=== PATIENT | male | born 1985 | race African-American/Black ===

== ENCOUNTER 2022-11-07 08:41 | Emergency (ER) | payer OTHER, SELFPAY ==
[2022-11-07 08:52] VITALS: BP 129/69; PULSE 64; RESP 16; TEMP 36.9; O2SAT 100
--- NOTE | 2022-11-07 09:10 | ED.GENADULT ---
HPI - General Adult General Chief complaint: Skin/Abscess/Foreign Body Stated complaint: FB in L Palm Time Seen by Provider: 11/07/22 08:49 History of Present Illness HPI narrative: 36-year-old male presented the emergency department for evaluation of an abscess to his left hand. Patient states approximate 1 month ago he had a foreign body in his left hand. Patient states he did remove the splinter. Patient did present to [facility] for evaluation and had a negative x-ray. Patient reports he has taken a course of antibiotics but he has had increased swelling at the lateral left hand. Patient was on antibiotics but is unsure of what antibiotics he has been on. Related Data Allergies Allergy/AdvReac Type Severity Reaction Status Date / Time pork derived (porcine) AdvReac Nausea and Verified 11/07/22 09:01 Vomiting Review of Systems Review of Systems: All systems reviewed & are unremarkable except as noted in HPI and below Exam Narrative: APPEARANCE: Well appearing, no pain, no distress, well-nourished. HEAD: normocephalic, atraumatic. EYES: PERRLA/EOMI, conjunctivae clear. NOSE: Normal no drainage NECK: Supple. No adenopathy, no masses. RESPIRATORY: Airway patent, respirations nonlabored. Clear to auscultation bilaterally, no rales, rhonchi, wheezing. CARDIOVASCULAR: Regular rate and rhythm without murmurs rubs or gallops. ABDOMINAL: Soft, nontender, nondistended, normal bowel sounds MUSCULOSKELETAL: Moves all extremities. Strength/ROM intact, No edema, No calf tenderness. NEURO: Alert. Cranial nerves II through XII intact. Grossly intact SKIN: Abscess on left hand Course Course Emergency Course: 36-year-old male presented the ED for evaluation of an abscess on his left hand. Patient had negative x-rays previously showing no foreign body. Ultrasound showed no foreign body but did show an abscess. I&D was performed and patient had a few milliliters of purulent material from the wound. Patient was started on clindamycin. Wound culture is pending. Patient was encouraged of close follow-up with his primary care physician was also provided outpatient follow-up with hand. All concerns were addressed and patient was comfortable to plan for discharge and close follow-up. Vital Signs Vital signs: Vital Signs Temperature 98.5 F 11/07/22 08:52 Pulse Rate 64 11/07/22 08:52 Respiratory Rate 16 11/07/22 08:52 Blood Pressure 129/69 11/07/22 08:52 Pulse Oximetry 100 11/07/22 08:52 Oxygen Delivery Room Air 11/07/22 08:52 Temperature 98.5 F 11/07/22 08:52 Pulse Rate 67 11/07/22 09:36 Respiratory Rate 15 11/07/22 09:36 Blood Pressure 108/75 11/07/22 09:36 Pulse Oximetry 99 11/07/22 09:36 Oxygen Delivery Room Air 11/07/22 08:52 Procedures Abscess I/D hand: Time of Incision: 09:13 Side (if applicable): left Local Anesthetic: lidocaine 1% Amount of anesthesia used (mL): 2 Technique: incised with #11 blade Amount of fluid expressed (mL): 2 Irrigation: Yes Packing used?: none I&D Results: Pus Complications: other (none) Medical Decision Making Differential Diagnosis Differential Diagnosis: Foreign body, abscess, cellulitis Vital Signs Vital Signs: Vital Signs Temperature 98.5 F 11/07/22 08:52 Pulse Rate 64 11/07/22 08:52 Respiratory Rate 16 11/07/22 08:52 Blood Pressure 129/69 11/07/22 08:52 Pulse Oximetry 100 11/07/22 08:52 Oxygen Delivery Room Air 11/07/22 08:52 Temperature 98.5 F 11/07/22 08:52 Pulse Rate 67 11/07/22 09:36 Respiratory Rate 15 11/07/22 09:36 Blood Pressure 108/75 11/07/22 09:36 Pulse Oximetry 99 11/07/22 09:36 Oxygen Delivery Room Air 11/07/22 08:52 Discharge Plan Discharge Clinical Impression: Abscess of skin or subcutaneous tissue Patient Disposition: Home, Self-Care Condition: Stable Instructions: Antibiotic For
[2022-11-07] MEDS: CLINDAMYCIN HCL 150 MG CAP PO (09:30)
[2022-11-07 09:36] VITALS: BP 108/75; PULSE 67; RESP 15; O2SAT 99
== END 2022-11-07 09:39 | disposition home or self-care (01) ==
PROVIDERS: Emergency Provider Emergency Medicine
DX: L02.512 Cutaneous abscess of left hand (principal)
CPT/HCPCS: 10060; 87070; 87205; 99283; A9270

== ENCOUNTER 2023-01-02 15:38 | Emergency (ER) | payer OTHER, SELFPAY ==
[2023-01-02 15:49] VITALS: BP 126/95; PULSE 87; RESP 15; TEMP 36.9; O2SAT 100
--- NOTE | 2023-01-02 16:09 | ED.GENADULT ---
HPI - General Adult General Chief complaint: Unspecified Stated complaint: weakness, sore throat Time Seen by Provider: 01/02/23 15:52 History of Present Illness HPI narrative: 37-year-old male reports for evaluation for a sore throat, body aches and chills x3 days. He reports that his more painful when he swallows. He is able to swallow solid foods and fluids. He denies known fever, vomiting, chest pain or shortness of breath, cough or congestion, otalgia. Reports taking cough drops today without improvement. Related Data Allergies Allergy/AdvReac Type Severity Reaction Status Date / Time pork derived (porcine) AdvReac Nausea and Verified 01/02/23 16:30 Vomiting Review of Systems Review of Systems: CONSTITUTIONAL: Denies fever, chills EYES: Denies visual changes, redness, or discharge. ENT: See HPI CARDIOVASCULAR: Denies chest pain, palpitations, or edema. RESPIRATORY: Denies cough or dyspnea. GASTROINTESTINAL: Denies abdominal pain, nausea, vomiting, or diarrhea. GENITOURINARY: Denies dysuria or hematuria. SKIN: Denies rash or itching. MUSCULOSKELETAL: Denies back pain, joint pain, or myalgia. NEUROLOGIC: Denies headache, numbness, dizziness, or weakness. PSYCHIATRIC: Denies anxiety or depression. Exam Narrative: GENERAL: Well-appearing, in no acute distress. Patient resting comfortably in exam bed. He is pleasant and conversational HEAD: Normocephalic EYES: PERRLA ENT: Nares clear. Mucous membranes moist. Bilateral TMs are gay and nonbulging. Posterior pharynx and tonsils with edema and erythema. 2+ tonsillar hypertrophy with small amount of exudates to the right tonsil. No uvular deviation. Patient tolerating secretions, no trismus. Floor mouth is soft without crepitus. No muffled voice. NECK: Supple. CHEST: No respiratory distress. Clear to auscultation, no adventitious breath sounds. HEART: Regular rate and rhythm. No murmur heard. Normal peripheral pulses. ABDOMEN: Soft, nontender, normal active bowel sounds. EXTREMITIES: Normal range of motion. No edema. SKIN: Warm, dry, no rash. NEURO: No focal deficits. Alert and oriented x3. PSYCH: Normal mood and affect. Course Vital Signs Vital signs: Vital Signs Temperature 98.4 F 01/02/23 15:49 Pulse Rate 87 01/02/23 15:49 Respiratory Rate 15 01/02/23 15:49 Blood Pressure 126/95 H 01/02/23 15:49 Pulse Oximetry 100 01/02/23 15:49 Oxygen Delivery Room Air 01/02/23 15:49 Temperature 98.4 F 01/02/23 15:49 Pulse Rate 87 01/02/23 15:49 Respiratory Rate 15 01/02/23 15:49 Blood Pressure 126/95 H 01/02/23 15:49 Pulse Oximetry 100 01/02/23 15:49 Oxygen Delivery Room Air 01/02/23 15:49 Medical Decision Making MDM Narrative Medical decision making narrative: 37-year-old male reports for evaluation for a sore throat, body aches and chills x3 days. Vital stable other than mildly elevated BP. Patient afebrile. Exam significant for 2+ tonsillar hypertrophy with erythema and exudates. No uvular deviation. Unlikely deep space infection or EXCELSIOR PICKER given no trismus and tolerating secretions, no muffled voice, no uvular deviation. Luna, COVID and flu and strep all negative. Given physical exam findings, will treat for bacterial etiology in the case that strep was a false negative. Penicillin sent to pharmacy. Advise follow-up with PCP within the following week, referral provided. Strict ED return precautions were discussed. He is agreeable to plan verbalized understanding. Discharged in stable condition. Medical Records Medical records reviewed: Yes I reviewed the external patient's medical records. Vital Signs Vital Signs: Vital Signs Temperature 98.4 F 01/02/23 15:49 Pulse Rate 87 01/02/23 15:49 Respiratory Rate 15 01/02/23 15:49 Blood Pressure 126/95 H 01/02/23 15:49 Pulse Oximetry 100 01/02/23 15:49 Oxygen Delivery Room Air 01/02/23 15:49 Temperature 98.4 F 01/02/23 15:49
[2023-01-02] MEDS: IBUPROFEN 600 MG TABLET PO (16:27)
[2023-01-02 16:59] LABS: Strep Group A RT-PCR NOT DETECTED (Negative)
[2023-01-02 17:12] LABS: Influenza A QL RT-PCR Negative (Negative); Influenza B QL RT-PCR Negative (Negative); SARS-CoV-2 RNA PCR Negative (Negative)
[2023-01-02 17:44] LABS: Monoscreen Negative (Negative); Negative Monotest Control Negative (Negative); Positive Monotest Control Positive (Positive)
[2023-01-02 18:33] VITALS: BP 134/76; PULSE 79; RESP 16; O2SAT 98
== END 2023-01-02 18:36 | disposition home or self-care (01) ==
PROVIDERS: Emergency Provider Physician Assistant
DX: J02.9 Acute pharyngitis, unspecified (principal); Z20.822 Contact with and (suspected) exposure to COVID-19
CPT/HCPCS: 36415; 86308; 87636; 87651; 96372; 99283; A9270; J1100

== ENCOUNTER 2024-06-07 14:31 | Emergency (ER) | payer OTHER, SELFPAY ==
--- NOTE | ~2024-06-07 | XR_ITS ---
HISTORY: swelling; c/f infection COMPARISON: None TECHNIQUE: 3 views of the left fourth digit. FINDINGS: No acute or subacute fracture. Joint spaces are preserved and alignment is preserved. Moderate soft tissue swelling projecting over the proximal interphalangeal joint space without radiop aque foreign body. IMPRESSION: Soft tissue swelling, without acute fracture. Reviewed, dictated and finalized at location A. LIFE TECHNICIAN
[2024-06-07 14:33] VITALS: BP 117/70; PULSE 78; RESP 18; TEMP 36.7; O2SAT 100
--- NOTE | 2024-06-07 17:06 | ED_ITS ---
HPI - Extremity Problem General Chief complaint: Extremity Problem,Nontraumatic Stated complaint: suspected inf. of LEFT ring finger Time Seen by Provider: 06/07/24 16:12 Source: patient Mode of arrival: ambulatory Limitations: no limitations History of Present Illness HPI Narrative: Left hand dominant Patient presents with concern for infection in left 4th digit. Denies any particular injury that he can recall - no bite, scratch/scrape, not performing activity under high pressure (PSI). History of infection in this extremity but in the hand. Denies history of MRSA. States his tetanus shot is up to date, believes it was last year. Has not been taking anything for pain at home. Symptoms started 2 days ago spontaneously. Works [employer]. Related Data Allergies Allergy/AdvReac Type Severity Reaction Status Date / Time pork derived (porcine) AdvReac Nausea and Verified 06/07/24 14:33 Vomiting PMFSH Past Medical History Medical History (Updated 06/08/24 @ 00:00 by Davon Scott) Abscess of left hand Left hand dominant Social History Social History (Updated 06/08/24 @ 12:21 by Aubree Bar MD) Occupation/Education: occupation Additional occupation/education comments: [employer] Exam 2 Narrative: GENERAL: Well-appearing, well-nourished, and in no acute distress. HEAD: Normocephalic, atraumatic. EYES: Non injected, non icteric ENT: Nares clear, no rhinorrhea or epistaxis. NECK: Supple. CHEST: Speaking in full sentences. No respiratory distress. HEART: Regular rate and rhythm. . ABDOMEN: Soft, nondistended. EXTREMITIES: Bilateral hands with multiple callouses on palm. Old scar on palmar aspect left hand. Strong palpable pulse and brisk capillary refill. Left 4th digit held in slight flexion. Tremendously swollen along the base/proximal aspect of this digit with a central area along palmar aspect that appears dry and calloused but not ulcerated, no purulent discharge. Finger is erythematous in this area, particularly along ulnar aspect of this digit at the base. TTP along ulnar aspect of this digit and into the dorsum of left hand. No TTP along flexor tendon sheeth. Pain with active and passive extension of this digit. SKIN: Warm, dry. NEURO: No focal deficits. Alert and oriented x3. PSYCH: Normal mood and affect. Course Vital Signs Vital signs: Vital Signs Temperature 98.0 F 06/07/24 14:33 Pulse Rate 78 06/07/24 14:33 Respiratory Rate 18 06/07/24 14:33 Blood Pressure 117/70 06/07/24 14:33 Pulse Oximetry 100 06/07/24 14:33 Oxygen Delivery Room Air 06/07/24 14:33 Temperature 98.1 F 06/07/24 21:30 Pulse Rate 77 06/07/24 21:30 Respiratory Rate 18 06/07/24 21:30 Blood Pressure 145/75 H 06/07/24 21:30 Pulse Oximetry 100 06/07/24 21:30 Oxygen Delivery Room Air 06/07/24 14:33 MDM - Extremity (Nontraumatic) MDM Narrative Medical decision making narrative: Left hand dominant presents with concern for left 4th finger infection. He has been painful and swollen for 2 days. No preceding event/trauma/injury. In the emergency department they are afebrile with vital signs within normal limits. Patient given analgesia. No acute process on imaging . Kanavel signs for flexor sheath infection (flexor tenosynovitis) Finger held in slight flexion: Yes Fusiform swelling of affected digit: Proximally but not distally Tenderness along flexor tendon sheath: No Pain with passive extension of digit: Yes Point of care ultrasound is performed using a water bath and linear transducer. This does demonstrate edema but no peritendinous effusion is appreciated. There is evidence of edema but no appreciable area of distinct abscess that would be amenable for drainage. Discussed with network operations analyst plastic surgeon/hand surgeon Dr Bird who concurs that clindamycin Rx outpatient and follow up as needed is reasonable. Recommends patient receive a dose of vancomycin while in the ED if possible. This is ordered. No leukocytosis. Normocytic anemia. CRP is normal. ESR normal. Discharged in stable condition with Rx for Abx and analgesic medication. Provided contact information/referral for Dr Bird. Given ED return precautions/indications. Differential Diagnosis Differential diagnosis: Likely other (Cellulitis, abscess, flexor tenosynovitis; osteomyelitis; septic joint) Medical Records Attestation: I reviewed the patient's medical records. Medical records narrative: Patient did previously present to the emergency department for an abscess in his left hand which was drained at bedside. Lab Data Attestation: I reviewed the patient's lab results. 06/07/24 19:21 06/07/24 19:21 Labs: Lab Results 06/07/24 Range/Units 19:21 WBC 8.9 (4.5-10.0) K/mm3 RBC 4.46 L (4.6-6.20) M/mm3 Hgb 13.9 L (14.0-18.0) g/dL Hct 41.8 L (42.0-52.0) % MCV 93.7 (80-100) fl MCH 31.2 (26-34) pg MCHC 33.3 (32-36) g/dl RDW 13.9 (11.5-14.5) % Plt Count 261 (150-375) k/mm3 MPV 10.2 (7.4-10.4) fl Immature Gran % (Auto) 0.6 H (0-0.5) % Neut % (Auto) 43.7 L (45.5-73.1) % Lymph % (Auto) 48.7 H (18.3-44.2) % Pitt % (Auto) 5.3 (2.6-8.5) % Eos % (Auto) 1.5 (0-4.4) % Baso % (Auto) 0.2 (0.2-1.2) % Lymph # (Auto) 4.34 H (0.9-3.2) K/mm3 Pitt # (Auto) 0.5 (0.1-0.6) K/mm3 Eos # (Auto) 0.1 (0-0.3) K/mm3 Baso # (Auto) 0.0 (0.0-0.1) K/mm3 Abs Immat Gran (auto) 0.05 H (0.00-0.031) K/mm3 Absolute Neuts (auto) 3.9 (1.3-6.7) K/mm3 Absolute Nucleated RBC 0.000 (0.0-0.012) K/mm3 Nucleated RBC % 0.0 (0.0-0.2) % ESR 14 (0-20) mm/hr Sodium 140 (137-145) mmol/L Potassium 3.6 (3.4-5.0) mmol/L Chloride 104 (98-107) mmol/L Carbon Dioxide 31 H (22-30) mmol/L Anion Gap 5 (4-12) mmol/L BUN 8 L (9-20) mg/dL Creatinine 0.66 L (0.7-1.3) mg/dL Estim Creat Clear Calc 163 ml/min Estimated GFR > 60 (59 - ) Glucose 84 (65-110) mg/dL Calcium 9.3 (8.4-10.2) mg/dL C-Reactive Protein < 0.5 (<1.0) mg/dL Imaging Data Radiologist's impression: Impressions Finger X-Ray 06/07/24 17:41 IMPRESSION: Soft tissue swelling, without acute fracture. Discharge Plan Discharge Clinical Impression: Anemia, Finger infection, Cellulitis of ring finger of left hand Patient Disposition: Home, Self-Care Condition: Stable Instructions: Antibiotic Form, Cellulitis (ED), Anemia (ED) Additional Instructions: You received your 1st dose of IV antibiotics in the emergency department. The rest of a course of antibiotics has been prescribed. It is important that you take the entire course. You can follow-up with the plastic surgeon/hand surgeon listed below. Return to the emergency department with any new/worsening/unmanaged symptoms such as swelling that extends throughout the entire finger, spreading redness, fever >100.4F, etc. Acetaminophen/Tylenol (maximum 4000 mg per day) is safe to take with NSAIDs (ibuprofen/Motrin) for pain relief. Patient Language: Com[place]an Prescriptions: New clindamycin HCl 300 mg capsule 300 mg PO TID 5 Days Qty: 15 0RF ibuprofen 600 mg tablet 600 mg PO TID PRN (Reason: pain) Qty: 30 0RF acetaminophen 500 mg capsule 1,000 mg PO Q6H PRN (Reason: pain) Qty: 30 0RF No Action penicillin V potassium 500 mg tablet 500 mg PO Q12H 10 Days Qty: 20 0RF clindamycin HCl 150 mg capsule 150 mg PO Q6H 10 Days Qty: 40 0RF Follow-up/Referrals: Bill Juarez MD [Physician] - (plastic surgery/hand specialist) Stand Alone Forms: Work/School Release IP Time of Disposition: 20:15
[2024-06-07] MEDS: HYDROcodone/acetaminophen (*CRX) 5-325 MG TABLET 1 TAB PO (17:51)
[2024-06-07 17:52] VITALS: BP 113/65; PULSE 59; RESP 16; TEMP 36.8; O2SAT 100
[2024-06-07 19:32] VITALS: BP 114/65; PULSE 68; RESP 13; TEMP 36.6; O2SAT 98
[2024-06-07 19:40] LABS: Basophils Percent Auto 0.2 % (0.2-1.2); Eosinophils Absolute Auto 0.1 K/mm3 (0-0.3); Eosinophils Percent Auto 1.5 % (0-4.4); Hematocrit 41.8 % (42.0-52.0); Hemoglobin 13.9 g/dL (14.0-18.0); Immature Granulocyte Absolute 0.05 K/mm3 (0.00-0.031); Immature Granulocyte Percent A 0.6 % (0-0.5); Lymphocytes Absolute Auto 4.34 K/mm3 (0.9-3.2); Lymphocytes Percent Auto 48.7 % (18.3-44.2); Mean Corpuscular HGB Conc 33.3 g/dl (32-36); Mean Corpuscular Hemoglobin 31.2 pg (26-34); Mean Corpuscular Volume 93.7 fl (80-100); Mean Platelet Volume 10.2 fl (7.4-10.4); Monocytes Absolute Auto 0.5 K/mm3 (0.1-0.6); Monocytes Percent Auto 5.3 % (2.6-8.5); Neutrophils Absolute Auto 3.9 K/mm3 (1.3-6.7); Neutrophils Percent Auto 43.7 % (45.5-73.1); Platelet Count Result 261 k/mm3 (150-375); Red Blood Count 4.46 M/mm3 (4.6-6.20); Red Cell Distribution Width 13.9 % (11.5-14.5); White Blood Count 8.9 K/mm3 (4.5-10.0)
[2024-06-07 19:54] LABS: Anion Gap 5 mmol/L (4-12); Blood Urea Nitrogen 8 mg/dL (9-20); CRP < 0.5 mg/dL (<1.0); Calcium 9.3 mg/dL (8.4-10.2); Carbon Dioxide 31 mmol/L (22-30); Chloride 104 mmol/L (98-107); Estimated CRCL calculation 163 ml/min; Estimated Glomerular Filt Rate > 60; Glucose 84 mg/dL (65-110); Potassium 3.6 mmol/L (3.4-5.0); Sodium 140 mmol/L (137-145)
[2024-06-07 20:14] LABS: Erythrocyte Sedimentation Rate 14 mm/hr (0-20)
[2024-06-07] MEDS: VANCOMYCIN 1,500 MG/NS 500 ML 1,500 MG/500 ML BAG 250 MG IVPB (20:23)
[2024-06-07 21:30] VITALS: BP 145/75; PULSE 77; RESP 18; TEMP 36.7; O2SAT 100
== END 2024-06-07 22:32 | disposition home or self-care (01) ==
PROVIDERS: Emergency Provider Student in an Organized Health Care Education/Training Program
DX: L03.012 Cellulitis of left finger (principal); D64.9 Anemia, unspecified
CPT/HCPCS: 36415; 73140; 80048; 85025; 85652; 86140; 96365; 96366; 99284; A9270; J3370